=== PATIENT | male | born 1980 | race Two or more races ===

== ENCOUNTER 2018-10-24 12:55 | Emergency (ER) | payer SELFPAY ==
--- NOTE | 2018-10-24 13:39 | NUR ---
not in lobby x1
--- NOTE | 2018-10-24 14:03 | NUR ---
NO ANSWER X2
--- NOTE | 2018-10-24 14:21 | NUR ---
NO ANSWER FROM TRIAGE
== END 2018-10-24 14:22 | disposition left against medical advice (07) ==
LOC: ED 14:16
DX: R11.2 Nausea with vomiting, unspecified (principal); Z53.21 Procedure and treatment not carried out due to patient leaving prior to being seen by health care provider